=== PATIENT | female | born 1950 | race African-American/Black ===

== ENCOUNTER → 2016-10-18 | Outpatient (CLI) | payer MEDICARE, OTHER ==
[~2016-10-18] MED LIST: AMLODIPINE BESY10 MG ORAL; DIOVAN320 MG ORAL; HYDROCHLOROTHIA25 MG ORAL; HYDROCODON-ACE1 EA13 ORAL; LEVAQUIN500 MG ORAL; VITAMIN D-32000 UNI1 PO
--- NOTE | 2016-10-18 14:24 | Diagnostic Imaging Report ---
Indication: COUGH Technique: 2 views of the chest Comparison: none. Findings: Lungs and pleural spaces are clear. Heart size is normal. Bones are unremarkable. Aorta is somewhat tortuous. Impression: No acute process
== END | disposition home or self-care (01) ==
LOC: RAD 13:19
DX: Z01.818 Encounter for other preprocedural examination (principal); I10 Essential (primary) hypertension; R05 Cough
CPT/HCPCS: 71020